=== PATIENT | female | born 1950 | race Caucasian/White ===

== ENCOUNTER 2016-05-09 13:28 | Observation (INO) | payer MEDICARE, BC ==
[~2016-05-09] VITALS: Ht 154.9 cm; Wt 55.3 kg
[2016-05-09] MEDS ORDERED: MAGNEVIST 15ML IV ONE (17:32)
[2016-05-09] MEDS ORDERED: SALINE FLUSH 10 ML FLUSH PRN (17:35)
[2016-05-09] MEDS ORDERED: ACETAMINOPHEN 325 MG TAB PO PRN (17:35)
[2016-05-09 19:25] VITALS: BP_SYST 140; BP_SYST 148; RESP 16; TEMP 98
[2016-05-09 19:26] VITALS: BMI 23.1
[2016-05-09] MEDS: SALINE FLUSH 10 ML FLUSH SCH (20:00)
[2016-05-09] MEDS: Aspirin 325 MG TAB PO SCH (21:52)
[2016-05-09 22:23] VITALS: RESP 16
[2016-05-09 23:44] VITALS: BP_SYST 126; RESP 18; TEMP 98.2
[2016-05-10 03:47] VITALS: BP_SYST 126; RESP 18; TEMP 97.9
[2016-05-10] MEDS ORDERED: SODIUM CHLORIDE 0.9% FLUSH BAG 500 ML IV SCH (06:00)
[2016-05-10 07:00] VITALS: BP_SYST 135; RESP 16; TEMP 97.9
[2016-05-10] MEDS ORDERED: PANTOPRAZOLE 40 MG TAB PO SCH (07:00)
[2016-05-10] MEDS ORDERED: ENOXAPARIN 40 MG/0.4 ML SYR SUBQ SCH (09:00)
[2016-05-10] MEDS: Aspirin 325 MG TAB PO SCH (09:14)
[2016-05-10] MEDS: KCL CR 20 MEQ TAB PO SCH ×2 (09:14→12:33)
[2016-05-10] MEDS: SALINE FLUSH 10 ML FLUSH SCH (09:15)
[2016-05-10] MEDS ORDERED: Losartan 50 MG TAB PO SCH (09:20)
[2016-05-10 13:00] VITALS: BP_SYST 127; RESP 16; TEMP 98
[2016-05-10 15:32] VITALS: BP_SYST 131; RESP 20; TEMP 97.8
[2016-05-10 15:47] VITALS: BP_SYST 127; RESP 16; TEMP 98
[2016-05-10 15:59] VITALS: BP_SYST 127; RESP 16; TEMP 98
[2016-05-10] MEDS ORDERED: Atorvastatin 20 MG TAB PO SCH (21:00)
[2016-05-11] MEDS ORDERED: LORATADINE 10 MG TAB PO SCH (09:00)
== END 2016-05-10 15:28 | disposition home or self-care (01) ==
LOC: ENRESERVDT → ENRESERVTM → ER 13:28 → ENPENDDIS 17:31 → EMR 17:31 → PCU 18:40
PROVIDERS: ADMIT Internal Medicine; ATTEND Internal Medicine
DX: R47.1 Dysarthria and anarthria (principal); R20.0 Anesthesia of skin; I10 Essential (primary) hypertension; Z79.82 Long term (current) use of aspirin; E78.5 Hyperlipidemia, unspecified; E87.6 Hypokalemia
CPT/HCPCS: 70450 ×2; 70544 ×2; 70548 ×2; 70553 ×2; 71010 ×2; 92610; 93005 ×2; 94799; 97161; 97165; 97799; 99285; A9579; G0378; G8978; G8979; G8980; G8987; G8988; G8989; G8996; G8997; G8998